=== PATIENT | female | born 1945 | race Caucasian/White ===

== ENCOUNTER 2016-06-09 19:36 | Emergency (ER) | payer OTHER, MEDICAID ==
[2016-06-09 19:47] VITALS: TEMP 98.1
--- NOTE | 2016-06-09 20:09 | EDPHY ---
[id number] home) Exam Limitations: No limitations - Personal History Current Tetanus/Diphtheria Vaccine: Yes Current Tetanus Diphtheria and Acellular Pertussis (TDAP): Yes - Medical/Surgical History Hx Asthma: No Hx Chronic Respiratory Disease: No Hx Diabetes: No Hx Cardiac Disease: No Hx Renal Disease: No Hx Cirrhosis: No Hx Alcoholism: No Hx HIV/AIDS: No Hx Splenectomy or Spleen Trauma: No Other PMH: cerebralpalsy,bipolar, cataracts, osteopenia,hypothyroidism, edema,. seizure disorder, UTIs - Social History Smoking Status: Never smoked HPI/ROS: CHIEF COMPLAINT: Weakness HISTORY OF PRESENT ILLNESS: patient presents with caregiver at bedside. She resides in a chcf here in [place]. She has chronic decreased mental capacity due to cerebral palsy. She is awake and provides a significant history and the sign designer corroborates and supplements. Patient denies any complaints of any kind. However the sign designer reports that the nurse at her home says the patient has been increasingly weak and not eating well over the past few days. There was also concern for possible wound on the sacrum. The patient specifically denies any abdominal pain, headache, chest pain, cough. She denies any falls or injuries. She denies any kind of syncope or loss of consciousness. There are no modifying factors to obtain and she denies any complaints of any kind. No other associated complaints or modifying factors obtainable. REVIEW OF SYSTEMS: Ten systems reviewed and are negative unless otherwise noted in the HPI EXAMINATION General Appearance: Alert, no distress , arrives by wheelchair resting in bed now Head: normocephalic, atraumatic Eyes: Pupils equal and round, no conjunctival pallor or injection ENT, Mouth: Mucous membranes moist Neck: Normal inspection, supple, non-tender. Respiratory: Lungs are clear to auscultation . No consolidation, wheezing or rhonchi Cardiovascular: Regular rate and rhythm Gastrointestinal: Abdomen is soft and nontender. No distention. No CVA tenderness. Back: non-tender, no bony abnormalities Neurological: Alert to person, place and time. Unable to test her gait. No pronator drift. mild resting tremor portably baseline Skin: Warm and dry, no rash. No evidence of abscess or decubitus ulceration Extremities: Nontender, bilateral 1+ pedal edema. Range of motion is severely limited chronically due to CP. Range of motion reportedly baseline per caregiver Psychiatric: Mood and affect normal DIFFERENTIAL DIAGNOSES: Including but not limited to urinary tract infection, weakness, dehydration, anemia, deconditioning, pneumonia. MDM: CP patient with chronic abnormalities at her baseline. Nurse at her home express some concern over her weakness recently. Patient denies any complaints of any kind. She appears to be well, her vital signs are within normal limits. She is in no acute distress. Her examination reveals no evidence of pneumonia. Her abdominal exam is benign. I did examine her skin and there is no evidence of decubitus or ulceration of the area of concern from the chcf. We will obtain routine, baseline laboratory studies including urine, and obtain a chest x-ray. She is resting comfortably with her caregiver at this time. 2305 Re-evaluation. Patient is resting comfortably. Her vital signs remained stable. She is in no discomfort. She still denies any complaints of any kind other than not feeling hungry lately. Laboratory studies are within acceptable limits her. There is exception of a very mildly elevated venous lactic acid. This is likely due to dehydration. There is no sign of infection by examination or by laboratory study or chest x-ray. Urine is completely within normal limits. There is no leukocytosis or fever. We will provide IV fluid resuscitation and then she will be discharged back to her chcf. The sign designer at her bedside will help drive her home with the [facility] [employer] vehicle. Patient is comfortable with this plan as is the sign designer at bedside. EKG: Interpreted by Dr. Pantoja SUPERVISION: Patient was evaluated in conjunction with the supervising physician. Please see their note for details. (Arash Richards) Constitutional: Initial Vital Signs Temperature (C) 36.7 C 06/09/16 19:44 Heart Rate 84 06/09/16 19:44 Respiratory Rate 16 06/09/16 19:44 Blood Pressure 159/103 H 06/09/16 19:44 O2 Sat (%) 96 06/09/16 19:44 O2 Delivery Mode Room Air Allergies/Adverse Reactions: adhesive Allergy (Verified 04/06/16 01:19) Home Medications: Medication Instructions Recorded Divalproex ER [Depakote ER 250 MG 250 mg PO BID 02/11/13 (*)] Levothyroxine [Synthroid 50 mcg 50 mcg PO DAILY06 02/11/13 (*)] Lisinopril [Zestril 10 mg (*)] 10 mg PO DAILY 02/11/13 Calcitonin [Fortical (*)] 1 spray EACHNARE Q48H 04/06/16 Herbals/Supplements -Info Only 1 ea PO DAILY 04/06/16 Multivitamins [Multivitamin (*)] 1 each PO DAILY 04/06/16 Oxybutynin Chloride [OXYBUTYNIN 5 mg PO DAILY 04/06/16 CHLORIDE ER] Tears/Dextran 70/Hypromellose 1 drop EACHEYE TID 04/06/16 [Natural Balance Tears (*)] risperiDONE [Risperdal] 2 mg PO HS 04/06/16 Levocarnitine 06/09/16 Nitrofurantoin 06/09/16 Medical Decision Making - Diagnostics EKG Interpretation: 12 lead EKG is interpreted in Trace master View by emergency department physician. It shows sinus rhythm with a rate of 66. No acute ischemic changes. There is baseline artifact. (Charu Pantoja) Other Provider: I have evaluated and participated in the management of this patient. My co- signature indicates that I have reviewed this chart and that I agree with the findings and the plan of care as documented. My personal history and physical findings include: Caregiver at [facility] apparently concerned about poor PO intake and weakness, also concern about possible decubitus. Patient herself has no complaints whatsoever, but notes that she is in the ED because she has not been eating well. She tells me that she just hasn't been feeling hungry. She specifically denies abdominal pain, nausea, diarrhea, dysuria, general malaise. On exam she is alert, appropriate, cooperative. Heart RRR. Lungs CTA. Abdomen soft and nontender, normal bowel sounds. Skin examined by VAN Brewer. No decubiti seen. I have reviewed CXR, labs, UA. I agree with the ED work-up and plan of care. I am aware of slight elevation in venous lactate and feel that this is likely due to dehydration. I do not find evidence of infection/sepsis and do not suspect intra-abdominal process at this time. I have reviewed the records of her recent hospitalization for urosepsis. I think she can safely return home. Caregivers will observe for deterioration. (Charu Pantoja) - Data Points Laboratory Results: Laboratory Results 06/09/16 20:30 06/09/16 21:34 Medications Given: Discontinued Medications Sodium Chloride (Ns) 1,000 mls @ 0 mls/hr IV ONCE ONE PRN Reason: Wide Open Stop: 06/09/16 21:11 Last Admin: 06/09/16 21:39 Dose: 1,000 mls Departure - Departure Disposition: Home, Routine, Self-Care Clinical Impression: Weakness, Cerebral palsy, Dehydration Condition: Good Instructions: Weakness (ED), Dehydration (ED) Additional Instructions: Discharge back to chcf. Follow up with primary care physician in the next 1-3 days. Return to the emergency department for increasing weakness, syncope, abdominal pain, cough, fever, chills. [place]errals: [place],. [Primary Care Provider] - As per Instructions Kristy Jerry MD [Medical Doctor] - As per Instructions
--- NOTE | 2016-06-09 20:26 | CPEKG ---
Heart Rate: 66 RR Interval: 909 P-R Interval: 156 QRSD Interval: 76 QT Interval: 404 QTC Interval: 424 P [place]: 56 QRS [place]: 57 T Wave [place]: 19 EKG Severity - NORMAL ECG - EKG Impression: SINUS RHYTHM Electronically Signed By: Charu Pantoja 09-Jun-2016 20:37:22
[2016-06-09 20:45] LABS: % IMMATURE GRANULYOCYTES 0.3 % (0.0-1.1); ABSOLUTE IMMATURE GRANULOCYTES 0.02 10^3/uL (0.00-0.10); ADD DIFF? NO; ADD MORPH? NO; ADD SCAN? NO; ATYPICAL LYMPHOCYTE FLAG 10 (0-99); FRAGMENT RBC FLAG 0 (0-99); HEMOGLOBIN 13.6 g/dL (12.6-16.3); LEFT SHIFT FLG 0 (0-99); LIPEMIA HEMOLYSIS FLAG 80 (0-99); MEAN CELL HEMOGLOBIN CONCENTR. 33.2 g/dL (32.4-36.7); MEAN CELL VOLUME 99.5 fL (81.5-99.8); MEAN PLATELET VOLUME 10.5 fL (8.7-11.7); PLATELET CLUMPS FLAG 0 (0-99); PLATELET COUNT 236 10^3/uL (150-400); RED BLOOD CELL COUNT 4.12 10^6/uL (4.18-5.33); RED CELL DISTRIBUTION WIDTH 12.2 % (11.5-15.2)
[2016-06-09 21:02] LABS: COLOR YELLOW; LEUKOCYTE ESTERASE,URINE NEGATIVE (NEGATIVE); NITRITE,URINE NEGATIVE (NEGATIVE)
[2016-06-09] MEDS ORDERED: NS 1,000 ML IV ONE (21:10)
[2016-06-09 21:55] VITALS: PULSE 60; RESP 15
[2016-06-09 21:57] LABS: INR 1.08 (0.83-1.16); PROTIME(PATIENT) 13.9 SEC (12.0-15.0)
[2016-06-09 21:58] LABS: APTT 26.3 SEC (23.0-38.0)
[2016-06-09 22:02] LABS: ANION GAP 10 mEq/L (8-16); CARBON DIOXIDE 31 mEq/l (22-31); CHLORIDE 99 mEq/L (97-110); CREATININE 0.5 mg/dL (0.6-1.0); GLOMERULAR FILTRATION RATE > 60; GLUCOSE 91 mg/dL (70-100); POTASSIUM 3.9 mEq/L (3.5-5.2); SODIUM 140 mEq/L (134-144)
[2016-06-09 23:28] VITALS: BP 123/68; O2SAT 98
--- NOTE | 2016-06-10 | DX ---
AP Portable Chest June 09, 2016 Indication: Possible pneumonia. Comparison: April 06, 2016. Findings: Because of the positioning, the left retrocardiac hemithorax is poorly visualized. Noneth eless, the hemidiaphragm can be seen, as can the gross lung parenchymal markings. I suspect there li isidra is not a dense consolidation in this region. The rest of the visualized right hemithorax is shabnam ar. The bones and soft tissues are unchanged. Impression: No definite plain film evidence for pneumonia, although there are limitations to this x- ray, as above. If at all possible, repeating the x-ray in straight frontal projection and a lateral would be helpful.
== END 2016-06-10 00:05 | disposition home or self-care (01) ==
DX: G80.9 Cerebral palsy, unspecified (principal); E86.0 Dehydration

== ENCOUNTER → 2016-09-21 | Outpatient (CLI) | payer OTHER, MEDICAID | LOC: FIMAGING 14:48 | PROVIDERS: ATTEND Family Medicine | DX: M54.42 Lumbago with sciatica, left side (principal); Z99.3 Dependence on wheelchair ==

== ENCOUNTER 2016-09-27 16:45 | Emergency (ER) | payer OTHER, MEDICAID ==
[2016-09-27 16:54] VITALS: BP 162/99; PULSE 72; RESP 20; TEMP 97.9; O2SAT 96
--- NOTE | 2016-09-27 17:02 | EDPHY ---
H & P Stated Complaint: FELL OUT OF WHEELCHAIR/LANDING ON BILAT KNEES Time Seen by Provider: 09/27/16 16:53 HPI/ROS: CHIEF COMPLAINT: Bilateral knee pain HISTORY OF PRESENT ILLNESS: The patient presents to the ED for evaluation of mild bilateral knee pain after a fall from her wheelchair. The patient reportedly is wheelchair-bound secondary to gait instability. She is normally able to transfer. The patient reportedly fell onto soft carpet landing on her knees. She did not strike her head or lose consciousness. She complains of some mild pain secondary to abrasions over her knee caps. The patient denies additional injury. REVIEW OF SYSTEMS: A comprehensive 10 point review of systems is otherwise negative aside from elements mentioned in the history of present illness. Source: Patient, Family - Personal History Current Tetanus/Diphtheria Vaccine: Yes - Medical/Surgical History Hx Asthma: No Hx Chronic Respiratory Disease: No Hx Diabetes: No Hx Cardiac Disease: No Hx Renal Disease: No Hx Cirrhosis: No Hx Alcoholism: No Hx HIV/AIDS: No Hx Splenectomy or Spleen Trauma: No Other PMH: cerebralpalsy,bipolar, cataracts, osteopenia,hypothyroidism, edema,. seizure disorder, UTIs - Social History Smoking Status: Never smoked - Physical Exam Exam: General Appearance: Elderly female, no acute distress Eyes: Pupils equal and round no pallor or injection ENT, Mouth: Mucous membranes moist Respiratory: There are no retractions, lungs are clear to auscultation Cardiovascular: Regular rate and rhythm Gastrointestinal: Abdomen is soft and nontender, no masses, bowel sounds normal Neurological: Weakness secondary to known CP Skin: Warm and dry, no rashes Musculoskeletal: Neck is supple nontender Extremities: Normal range of motion bilateral lower extremities, no patellar tenderness, no significant joint tenderness Constitutional: Initial Vital Signs Temperature (C) 36.6 C 09/27/16 16:51 Heart Rate 72 09/27/16 16:51 Respiratory Rate 20 09/27/16 16:51 Blood Pressure 162/99 H 09/27/16 16:51 O2 Sat (%) 96 09/27/16 16:51 O2 Delivery Mode Room Air Allergies/Adverse Reactions: adhesive Allergy (Verified 09/27/16 16:47) Home Medications: Medication Instructions Recorded Divalproex ER [Depakote ER 250 MG 250 mg PO BID 02/11/13 (*)] Levothyroxine [Synthroid 50 mcg 50 mcg PO DAILY06 02/11/13 (*)] Lisinopril [Zestril 10 mg (*)] 10 mg PO DAILY 02/11/13 Calcitonin [Fortical (*)] 1 spray EACHNARE Q48H 04/06/16 Herbals/Supplements -Info Only 1 ea PO DAILY 04/06/16 Multivitamins [Multivitamin (*)] 1 each PO DAILY 04/06/16 Oxybutynin Chloride [OXYBUTYNIN 5 mg PO DAILY 04/06/16 CHLORIDE ER] Tears/Dextran 70/Hypromellose 1 drop EACHEYE TID 04/06/16 [Natural Balance Tears (*)] risperiDONE [Risperdal] 2 mg PO HS 04/06/16 Levocarnitine 06/09/16 Nitrofurantoin 06/09/16 FEXOFENADINE HCL 09/27/16 Fortical (*) 09/27/16 Nitrofurantoin 09/27/16 Medical Decision Making ED Course/Re-evaluation: The patient has no clinical evidence of a fracture. She is able to fully weight bear. She has no patellar tenderness. She has no tibial plateau or femoral condyle tenderness. The patient is noted to be neurologically intact. She has no evidence of a closed head injury, cervical spine injury or additional traumatic injury. Departure - Departure Disposition: Home, Routine, Self-Care Clinical Impression: Knee contusion Qualifiers: Encounter type: initial encounter Laterality: left Qualified Code(s): S80.02XA - Contusion of left knee, initial encounter Knee contusion Qualifiers: Encounter type: initial encounter Laterality: left Qualified Code(s): S80.02XA - Contusion of left knee, initial encounter Condition: Good Instructions: Contusion in Adults (ED) Additional Instructions: 1. Tylenol as needed for pain. 2. Return to the ED for worsening pain, inability to weight bear, new traumatic complaints or other concerns. Referrals: SANTIAGO ALVARES [Primary Care Provider] - As per Instructions
== END 2016-09-27 17:09 | disposition home or self-care (01) ==
DX: S80.01XA Contusion of right knee, initial encounter (principal); S80.02XA Contusion of left knee, initial encounter; W05.0XXA Fall from non-moving wheelchair, initial encounter

== ENCOUNTER → 2016-11-13 | Outpatient (CLI) | payer OTHER, MEDICAID | LOC: FIMAGING 11:31 | PROVIDERS: ATTEND Family Medicine | DX: Z12.31 Encounter for screening mammogram for malignant neoplasm of breast (principal) | CPT/HCPCS: G0202 ==

== ENCOUNTER → 2017-01-24 | Outpatient (CLI) | payer OTHER, MEDICAID | LOC: FIMAGING 14:51 | DX: R92.8 Other abnormal and inconclusive findings on diagnostic imaging of breast (principal) | CPT/HCPCS: G0206 ==

== ENCOUNTER → 2018-01-25 | Outpatient (CLI) | payer OTHER, MEDICAID | LOC: FIMAGING 13:58 | DX: Z12.31 Encounter for screening mammogram for malignant neoplasm of breast (principal) ==

== ENCOUNTER → 2018-03-22 | Outpatient (CLI) | payer OTHER | LOC: FIMAGING 13:01 | DX: R92.0 Mammographic microcalcification found on diagnostic imaging of breast (principal) ==

== ENCOUNTER 2018-06-10 15:22 | Emergency (ER) | payer OTHER, MEDICAID ==
[2018-06-10] MEDS ORDERED: NS 1,000 ML IV ONE (16:43)
--- NOTE | 2018-06-10 16:43 | EDPHY ---
H & P Stated Complaint: diarrhea with exposure to noro virus in longterm Source: Patient, Family (Rail Bender), RN/MD Exam Limitations: No limitations - Personal History Current Tetanus Diphtheria and Acellular Pertussis (TDAP): Yes - Medical/Surgical History Hx Asthma: No Hx Chronic Respiratory Disease: No Hx Diabetes: No Hx Cardiac Disease: No Hx Renal Disease: No Hx Cirrhosis: No Hx Alcoholism: No Hx HIV/AIDS: No Hx Splenectomy or Spleen Trauma: No Other PMH: cerebralpalsy,bipolar, cataracts, osteopenia,hypothyroidism, edema,. seizure disorder, UTIs - Social History Smoking Status: Never smoked Time Seen by Provider: 06/10/18 16:35 HPI/ROS: HPI: This is a 72-year-old female who presents with Chief Complaint: 1 episode of diarrhea and concern for norovirus Location: GI Quality: Diarrhea Duration: 4-5 hours prior to arrival Signs and Symptoms: no fever, no nausea, no vomiting, no hematemesis, no blood in stool, no abdominal bloating, + diarrhea, no back pain, no urinary symptoms, no testicular/groin pain, no indigestion, no chest pain, no shortness of breath Timing: Acute, 1 episode Severity: [id number] Context: Patient arrives with medical care evaluation specialist from the [facility] with sudden onset of 1 episode of diarrhea at 12 noon. No episodes of nausea, vomiting, fever, urinary symptoms, back pain, abdominal pain. Rail Bender reports that there has been two other residents of the longterm have been to the emergency room within the last 24-48 hours and diagnosed with a norovirus. Rail Bender reports that the stool was extremely loose and had a foul order. Patient has ate breakfast and lunch without difficulty. She has had her morning meds. She is behaving at baseline and is nonambulatory and uses an electric wheelchair. She has urinary incontinence and wears depends. Modifying Factors: Comment: ROS: A comprehensive 10 system review of systems is otherwise negative aside from elements mentioned in the history of present illness. MEDICAL/SURGICAL/SOCIAL HISTORY: Medical history: Cerebral palsy, cyclic thigh Fior bipolar disorder, depression , developmental disability, early mild cataracts in both eyes, gingivitis, hearing loss, hypertension, history of UTI, hypothyroidism, incontinence urinary , myopia, osteopenia, peripheral edema of unknown origin, pattern worse, right hemo plegia, thoracic scoliosis, seasonal allergies, seizure disorder Surgical history: Denies Social history: Disabled, nonsmoker. Family history noncontributory. CONSTITUTIONAL: Interactive, elderly white female sitting in wheelchair, awake and alert, no obvious distress HEENT: Atraumatic and normocephalic, PERRL, EOMI. Nares patent; no rhinorrhea; no nasal mucosal edema. Tympanic membranes clear. Oropharynx clear, no exudate and moist pink mucosa. Airway patent. No lymphadenopathy. No meningismus. Cardiovascular: Normal S1/S2, regular rate, regular rhythm, without murmur rub or gallop. PULMONARY/CHEST: Symmetrical and nontender. Clear to auscultation bilaterally. Good air movement. No accessory muscle usage. ABDOMEN: Soft, nondistended, nontender, no rebound, no guarding, no peritoneal signs, no masses or organomegaly. No CVAT. Wearing a pull-up. EXTREMITIES: 2/2 pulses, strength 5/5, right upper extremity contracture old noted. no deformities, no clubbing, no cyanosis or edema. NEUROLOGICAL: no focal neuro deficits. GCS 15. Will follow simple commands. SKIN: Warm and dry, no erythema. no rash. Good capillary refill. (Nette Kowalski) Constitutional: Initial Vital Signs Temperature (C) 36.4 C 06/10/18 15:33 Heart Rate 70 06/10/18 15:33 Respiratory Rate 16 06/10/18 15:33 Blood Pressure 146/85 H 06/10/18 15:33 O2 Sat (%) 94 06/10/18 15:33 O2 Delivery Mode Room Air Allergies/Adverse Reactions: adhesive Allergy (Verified 06/10/18 15:32) Home Medications: Medication Instructions Recorded Divalproex ER [Depakote ER 250 MG 250 mg PO BID 02/11/13 (*)] Levothyroxine [Synthroid 50 mcg 50 mcg PO DAILY06 02/11/13 (*)] Lisinopril [Zestril 10 mg (*)] 10 mg PO DAILY 02/11/13 Calcitonin [Fortical (*)] 1 spray EACHNARE Q48H 04/06/16 Herbals/Supplements -Info Only 1 ea PO DAILY 04/06/16 Multivitamins [Multivitamin (*)] 1 each PO DAILY 04/06/16 Oxybutynin Chloride [OXYBUTYNIN 5 mg PO DAILY 04/06/16 CHLORIDE ER] Tears/Dextran 70/Hypromellose 1 drop EACHEYE TID 04/06/16 [Natural Balance Tears (*)] risperiDONE [Risperdal] 2 mg PO HS 04/06/16 Levocarnitine 06/09/16 Nitrofurantoin 06/09/16 FEXOFENADINE HCL 09/27/16 Fortical (*) 09/27/16 Nitrofurantoin 09/27/16 Medical Decision Making ED Course/Re-evaluation: Vital signs reviewed and stable upon arrival. No systemic signs. IV access, laboratory studies, stool studies ordered Patient's abdomen is soft and nontender and I doubt surgical process or need for imaging. Given 1 L normal saline 1733: Labs reviewed. No leukocytosis, sodium 140, potassium 4.8, creatinine 0.6. No signs of anemia/platelet dysfunction/FREDY/elevated LFTs/electrolyte imbalance/pancreatitis. 1823: After 3.5 hr in the emergency room, patient has not had any episodes of vomiting or able to produce a stool sample. Patient has no signs of dehydration , acute abdominal pain, sepsis. Her risk factor is elderly age. She is appropriate for discharge home with a prescription for GI pathogen panel and stool sample cup provided. She is to have close follow-up with her primary care provider in the next 24-48 hours due to her elderly age. I have given her a prepack for Zofran and encourage fluid intake. This patient was seen under the supervision of my secondary supervising physician. I evaluated care for this patient with attending. Discussed this patient with Dr. Khan who did not see the patient. (Nette Kowalski) I did not see this patient while she was in the emergency department. However her care was discussed with the PA while the patient was in the department. I agree with treatment plan and management (Farhad Khan) Differential Diagnosis: Differential diagnosis includes but is not limited to gastroenteritis, C diff colitis, norovirus, gastritis, colitis, obstruction, sepsis. (Nette Kowalski) - Data Points Laboratory Results: Laboratory Results 06/10/18 16:57 06/10/18 16:57 06/10/18 06/10/18 16:57 16:57 WBC 7.82 10^3/uL 10^3/uL (3.80-9.50) RBC 4.65 10^6/uL 10^6/uL (4.18-5.33) Hgb 15.3 g/dL g/dL (12.6-16.3) Hct 45.8 % % (38.0-47.0) MCV 98.5 fL fL (81.5-99.8) MCH 32.9 pg pg (27.9-34.1) MCHC 33.4 g/dL g/dL (32.4-36.7) RDW 12.5 % % (11.5-15.2) Plt Count 228 10^3/uL 10^3/uL (150-400) MPV 10.3 fL fL (8.7-11.7) Neut % (Auto) 56.8 % % (39.3-74.2) Lymph % (Auto) 29.8 % % (15.0-45.0) Crockett % (Auto) 11.1 % % (4.5-13.0) Eos % (Auto) 1.5 % % (0.6-7.6) Baso % (Auto) 0.5 % % (0.3-1.7) Nucleat RBC Rel Count 0.0 % % (0.0-0.2) Absolute Neuts (auto) 4.44 10^3/uL 10^3/uL (1.70-6.50) Absolute Lymphs (auto) 2.33 10^3/uL 10^3/uL (1.00-3.00) Absolute Monos (auto) 0.87 10^3/uL H 10^3/uL (0.30-0.80) Absolute Eos (auto) 0.12 10^3/uL 10^3/uL (0.03-0.40) Absolute Basos (auto) 0.04 10^3/uL 10^3/uL (0.02-0.10) Absolute Nucleated RBC 0.00 10^3/uL 10^3/uL (0-0.01) Immature Gran % 0.3 % % (0.0-1.1) Immature Gran # 0.02 10^3/uL 10^3/uL (0.00-0.10) Sodium 140 mEq/L mEq/L (135-145) Potassium 4.8 mEq/L mEq/L (3.5-5.2) Chloride 104 mEq/L mEq/L (97-110) Carbon Dioxide 28 mEq/l mEq/l (22-31) Anion Gap 8 mEq/L mEq/L (6-14) BUN 23 mg/dL mg/dL (7-23) Creatinine 0.6 mg/dL mg/dL (0.6-1.0) Estimated GFR > 60 Glucose 89 mg/dL mg/dL (70-100) Calcium 9.9 mg/dL mg/dL (8.5-10.4) Total Bilirubin 0.3 mg/dL mg/dL (0.1-1.4) Conjugated Bilirubin 0.3 mg/dL mg/dL (0.0-0.5) Unconjugated Bilirubin 0.0 mg/dL mg/dL (0.0-1.1) AST 35 IU/L IU/L (14-46) ALT 25 IU/L IU/L (9-52) Alkaline Phosphatase 63 IU/L IU/L (38-126) Total Protein 7.2 g/dL g/dL (6.3-8.2) Albumin 4.1 g/dL g/dL (3.5-5.0) Lipase 206 IU/L IU/L (23-300) Medications Given: Discontinued Medications Sodium Chloride (Ns) 1,000 mls @ 0 mls/hr IV EDNOW ONE; Wide Open PRN Reason: Protocol Stop: 06/10/18 16:44 Last Admin: 06/10/18 17:06 Dose: 1,000 mls Ondansetron HCl (Zofran Odt 4 Mg Prepack#2) 1 btl TAKEHOME EDNOW ONE Stop: 06/10/18 18:21 Last Admin: 06/10/18 18:38 Dose: 1 btl Departure - Departure Disposition: Home, Routine, Self-Care Clinical Impression: Diarrhea Qualifiers: Diarrhea type: unspecified type Qualified Code(s): R19.7 - Diarrhea, unspecified Condition: Good Instructions: Dehydration (ED), Gastroenteritis (ED) Additional Instructions: Consume a minimum of 8-10 glasses of water or electrolyte fluid replacement drinks that include Gatorade, Powerade, Pedialyte. Eat a bland diet for the next 48 hours and then slowly advance as tolerated. Take Zofran 1 tab every 4 hours as needed for nausea, vomiting. You have been given a sample cup for stool sample that you can bring back to the hospital to have a GI pathogen panel ran I have written a prescription for this. Please follow-up with your primary care provider in the next 24-48 hr for close re-evaluation and to make sure patient does not become dehydrated. Return to the Emergency Room if symptoms do not resolve in the next 72 hours, you spike a fever > 102 F, or experience intractable abdominal pain/nausea/ vomiting. Referrals: JEFF PELAYO [Other] - 1-2 days without fail
[2018-06-10 17:12] LABS: PLATELET COUNT 228 10^3/uL (150-400)
[2018-06-10] MEDS ORDERED: ONDANSETRON 4MG PREPACK#2 BTL TAKEHOME ONE (18:20)
[2018-06-10 18:23] VITALS: BP 176/115
--- NOTE | 2018-06-10 19:13 | ASMTCMCOM ---
CM Note CM Note Notes: Pt presented to the ED for N/V/D. Received a call from [facility] ([phone]); they are providing PT/OT services to pt. Pt lives in a detention and is accompanied by a critical care transport nurse in the ED. Pt discharged home to followup w/PCP. Called Nicole and notified her of pt's DC home; referral/updates sent to [facility] via [employer]. CM available for further assistance if needed Date Signed: 06/10/2018 07:13 PM Electronically Signed By:Kristy Eric RN
== END 2018-06-10 18:52 | disposition home or self-care (01) ==
DX: R19.7 Diarrhea, unspecified (principal); E86.0 Dehydration; G80.9 Cerebral palsy, unspecified; Z20.828 Contact with and (suspected) exposure to other viral communicable diseases

== ENCOUNTER → 2018-09-23 | Outpatient (CLI) | payer OTHER, MEDICAID | LOC: FIMAGING 11:04 | DX: R92.0 Mammographic microcalcification found on diagnostic imaging of breast (principal) ==